=== PATIENT | male | born 2000 | race Asian ===

== ENCOUNTER 2022-07-07 08:45 | Emergency (ER) | payer BC ==
[~2022-07-07] VITALS: Ht 188 cm; Wt 163.7 kg
[2022-07-07 08:53] VITALS: BP 135/58; TEMP 97.5
== END 2022-07-07 10:13 | disposition home or self-care (01) ==
LOC: ED 08:45
DX: S40.011A Contusion of right shoulder, initial encounter (principal); S46.811A Strain of other muscles, fascia and tendons at shoulder and upper arm level, right arm, initial encounter; V86.59XA Driver of other special all-terrain or other off-road motor vehicle injured in nontraffic accident, initial encounter; Y92.89 Other specified places as the place of occurrence of the external cause
CPT/HCPCS: 99283